=== PATIENT | male | born 1955 | race Caucasian/White ===

== ENCOUNTER → 2021-07-05 | Outpatient (CLI) | payer OTHER | LOC: US 08:27 | DX: R94.5 Abnormal results of liver function studies (principal); R16.0 Hepatomegaly, not elsewhere classified; K82.8 Other specified diseases of gallbladder; L30.9 Dermatitis, unspecified; M47.819 Spondylosis without myelopathy or radiculopathy, site unspecified; H93.19 Tinnitus, unspecified ear; Z79.899 Other long term (current) drug therapy; Z88.8 Allergy status to other drugs, medicaments and biological substances | CPT/HCPCS: 76700 ==